=== PATIENT | male | born 1980 ===

== ENCOUNTER 2017-09-14 16:30 | Emergency (ER) | payer MEDICAID ==
[2017-09-14 16:46] VITALS: BP 112/70; PULSE 65; RESP 16; TEMP 98.4; O2SAT 98
--- NOTE | 2017-09-14 17:11 | ED PDOC ---
HPI: Skin/Bite Injury Time Seen by Provider: 09/14/17 17:02 Chief Complaint (Nursing): Abnormal Skin Integrity History Per: Patient History/Exam Limitations: no limitations Onset/Duration Of Symptoms: Days (x 2) Current Symptoms Are (Timing): Still Present Quality Of Symptoms: Itching Additional Complaint(s): 37-year-old male presents to ED complaining of itchiness to his hands for 2 days. Reports some itchiness under right eye and behind right ear. 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 Pt not sure what caused itchiness. Denies having history of allergies. (-) shortness of breath. PMD: Provider TBD Past Medical History Reviewed: Historical Data, Nursing Documentation, Vital Signs Vital Signs: Last Vital Signs Temp 98.4 F 09/14/17 16:45 Pulse 65 09/14/17 16:45 Resp 16 09/14/17 16:45 BP 112/70 09/14/17 16:45 Pulse Ox 98 09/14/17 17:20 - Medical History PMH: No Chronic Diseases - Surgical History Surgical History: No Surg Hx - Family History Family History: States: Unknown Family Hx - Social History Current smoker - smoking cessation education provided: No Alcohol: None Drugs: Denies - Home Medications Home Medications: Ambulatory Orders Medication Instructions Recorded Cetirizine HCl [Zyrtec] 10 mg PO DAILY #10 capsule 09/14/17 predniSONE [predniSONE Tab] 3 tab PO DAILY #15 tab 09/14/17 - Allergies Allergies/Adverse Reactions: Allergies Allergy/AdvReac Type Severity Reaction Status Date / Time No Known Allergies Allergy Verified 09/14/17 17:06 Review of Systems ROS Statement: Except As Marked, All Systems Reviewed And Found Negative Respiratory: Negative for: Shortness of Breath Skin: Positive for: Other (b/l hands, under right eye, behind right ear) Physical Exam - Reviewed Nursing Documentation Reviewed: Yes Vital Signs Reviewed: Yes - Physical Exam Skin: Negative for: Normal Color ((+) (+) Mild scally skin noted beneth right eye, (+) Mild Urticaria noted to right ear, (+) Non-specific papular lesions noted to b/l dorsal surface of hand) - ECG O2 Sat by Pulse Oximetry: 98 (RA) Pulse Ox Interpretation: Normal Medical Decision Making Medical Decision Making: Upon provider evaluation patient is medically stable, and requires no further treatment in the ED at this time. Patient will be discharged with Rx for Zyrtec and predniSONE Tab. Counseling was provided and all questions were answered regarding diagnosis and need for follow up with [facility]. There is agreement to discharge plan. Return if symptoms persist or worsen. Scribe Attestation: Documented by Ángel Gutierrez, acting as a scribe for Mehrdad Machado PA-C. Provider Scribe Attestation: All medical record entries made by the Scribe were at my direction and personally dictated by me. I have reviewed the chart and agree that the record accurately reflects my personal performance of the history, physical exam, medical decision making, and the department course for this patient. I have also personally directed, reviewed, and agree with the discharge instructions and disposition. Disposition - Clinical Impression Clinical Impression: Rash - Patient ED Disposition Is Patient to be Admitted: No - Disposition Referrals: [facility] [Outside] Disposition: Routine/Home Disposition Time: 17:18 Condition: FAIR Prescriptions: Cetirizine HCl [Zyrtec] 10 mg PO DAILY #10 capsule predniSONE [predniSONE Tab] 3 tab PO DAILY #15 tab Instructions: Skin Rash (DC) Forms: [employer] (I[place]ic)
== END 2017-09-14 17:29 | disposition home or self-care (01) ==
LOC: H.ER 16:30
DX: R21 Rash and other nonspecific skin eruption (principal)